=== PATIENT | female | born 1965 | race American Indian/Alaskan Native ===

== ENCOUNTER 2017-10-11 18:21 | Emergency (ER) | payer OTHER ==
[2017-10-11 18:22] VITALS: BMI 31.9
--- NOTE | 2017-10-11 19:02 | ED PDOC ---
Arrival/HPI - General Chief Complaint: Abnormal Skin Integrity Time Seen by Provider: 10/11/17 18:25 Historian: Patient - History of Present Illness Narrative History of Present Illness (Text): 10/11/17 19:04 52yr old female with a hx of sarcoidosis presents today with 2 week history pruritic rash to the left side of the neck. pt states rash started out small and has been gradually increasing. pt denies pain. pt denies fever/chill.s pt denies contacts with dogs. states that she did get a shave of the back of the hair from the hairdresser. no other complaints. Past Medical History - Provider Review Nursing Documentation Reviewed: Yes - Travel History Have you recently traveled outside [place] w/in the past 3 mons?: No - Infectious Disease Hx of Infectious Diseases: None - Tetanus Immunization Tetanus Immunization: Unknown - Cardiac Hx Hypertension: Yes - Pulmonary Other/Comment: sacoidosis - Neurological Hx Neurological Disorder: No - HEENT Hx HEENT Disorder: No - Renal Hx Renal Disorder: No - Endocrine/Metabolic Hx Endocrine Disorders: No - Hematological/Oncological Hx Blood Disorders: No - Integumentary Hx Dermatological Disorder: No - Musculoskeletal/Rheumatological Other/Comment: sarcodosis - Gastrointestinal Hx Gastrointestinal Disorders: No - Genitourinary/Gynecological Hx Genitourinary Disorders: No - Psychiatric Hx Psychophysiologic Disorder: No Hx Substance Use: No - Surgical History Other/Comment: lymph node removal from rt groin/pilonidial cyst/abcess left breast - Anesthesia Hx Anesthesia: Yes Hx Anesthesia Reactions: No Hx Malignant Hyperthermia: No - Suicidal Assessment Feels Threatened In Home Enviroment: No Family/Social History - Physician Review Nursing Documentation Reviewed: Yes Family/Social History: Unknown Family HX Smoking Status: Never Smoked Hx Alcohol Use: Yes Hx Substance Use: No Hx Substance Use Treatment: No Allergies/Home Meds Allergies/Adverse Reactions: Allergies acetaminophen [From Percocet] Allergy (Verified 10/11/17 18:35) RASH oxycodone HCl [From Percocet] Allergy (Verified 10/11/17 18:35) RASH Penicillins Allergy (Verified 10/11/17 18:35) RASH Home Medications: Home Meds Medication Instructions Recorded Confirmed Folic Acid 1 mg PO DAILY 10/03/15 10/11/17 Ergocalciferol (Vitamin D2) 50,000 unit PO QWK 10/28/16 10/11/17 [Vitamin D2] Lisinopril/Hydrochlorothiazide 1 tab PO DAILY 10/28/16 10/11/17 [Lisinopril-Hctz 20-25 mg Tab] Review of Systems - Review of Systems Constitutional: absent: Fatigue, Fevers Respiratory: absent: SOB, Cough Cardiovascular: absent: Chest Pain, Palpitations Gastrointestinal: absent: Abdominal Pain, Nausea, Vomiting Musculoskeletal: absent: Arthralgias Skin: Rash, Pruritis Neurological: absent: Headache Physical Exam Vital Signs Reviewed: Yes Vital Signs Temp Pulse Resp BP Pulse Ox 10/11/17 18:26 98.4 F 85 20 150/90 97 Temperature: Afebrile Blood Pressure: Normal Pulse: Regular Respiratory Rate: Normal Appearance: Positive for: Well-Appearing, Non-Toxic, Comfortable Pain Distress: None Mental Status: Positive for: Alert and Oriented X 3 - Systems Exam Head: Present: Atraumatic Mouth: Present: Moist Mucous Membranes Neck: Present: Normal Range of Motion, Trachea Midline Respiratory/Chest: Present: Clear to Auscultation Cardiovascular: Present: Regular Rate and Rhythm Neurological: Present: GCS=15, Speech Normal Skin: Present: Warm, Dry, Rashes (there is a 3cm round area of raised erythematous plaque with papules. slight fluorescence with Rivera's lamp. ), Normal Color Psychiatric: Present: Alert, Oriented x 3 Medical Decision Making ED Course and Treatment: 10/11/17 19:09 pt is non toxic well appearing; no distress. with 2 week hx of pruritic rash to left side of neck. rash with slight fluorescence with Wood's lamp. will cover with lotrisone. advised f/u with the PMD and sander and polisher. advised return if symptoms worsen, persist or if new symptoms develop. Patient verbalizes understanding of discharge instructions and need for immediate followup. all aspects of this case were discussed the attending of record. Impression: Rash follow up with the Oil Processing Technician within the next 2 days. Lotrisone apply sparingly twice daily to the affected area Follow up with the primary care physician within the next 2 days. return immediately if symptoms worsen,persist or if new symptoms develop. Disposition/Present on Arrival - Present on Arrival Any Indicators Present on Arrival: No History of DVT/PE: No History of Uncontrolled Diabetes: No Urinary Catheter: No History of Decub. Ulcer: No History Surgical Site Infection Following: None - Disposition Have Diagnosis and Disposition been Completed?: Yes Diagnosis: Rash Disposition: HOME/ ROUTINE Disposition Time: 19:01 Patient Plan: Discharge Patient Problems: Current Active Problems Problem Status Onset Rash Acute Condition: GOOD Discharge Instructions (ExitCare): Skin Rash (DC) Additional Instructions: follow up with the Oil Processing Technician within the next 2 days. Lotrisone apply sparingly twice daily to the affected area Follow up with the primary care physician within the next 2 days. return immediately if symptoms worsen,persist or if new symptoms develop. Prescriptions: Clotrimazole/Betamethasone [Lotrisone] 1 appl EXT BID #1 tube Referrals: Yang Brennan MD [Primary Care Provider] - Follow up with primary Ana Merchant MD [Staff Provider] - Follow up with primary
[2017-10-11 19:19] VITALS: BP 150/90; PULSE 85; RESP 20; TEMP 98.4; O2SAT 97
== END 2017-10-11 19:06 | disposition home or self-care (01) ==
LOC: ED 18:21
DX: R21 Rash and other nonspecific skin eruption (principal); I10 Essential (primary) hypertension

== ENCOUNTER 2018-03-28 22:53 | Emergency (ER) | payer OTHER ==
[2018-03-28 23:01] VITALS: BMI 32.1
[2018-03-28 23:14] VITALS: TEMP 98.3
[2018-03-28 23:43] LABS: BASO # 0.01 K/mm3 (0.0-2.0); BASO % 0.2 % (0.0-3.0); EOS # 0.1 (0.0-0.7); EOS % 1.7 % (1.5-5.0); GRAN # 3.21 (1.4-6.5); GRAN % 66.9 % (50.0-68.0); HEMOGLOBIN 12.2 g/dL (12.0-16.0); LYMPH # 1.2 (1.2-3.4); LYMPH % 25.4 % (22.0-35.0); MEAN CELL VOLUME 90.5 fl (80.0-105.0); MEAN CORPUSCULAR HEMOGLOBIN 29.7 pg (25.0-35.0); MEAN CORPUSCULAR HGB CONC 32.8 g/dl (31.0-37.0); MEAN PLATELET VOLUME 11.1 fl (7.0-11.0); MONO # 0.3 (0.1-0.6); MONO % 5.8 % (1.0-6.0); RBC 4.11 10^6/uL (3.5-6.1); RED CELL DISTRIBUTION WIDTH 12.7 % (11.5-14.5); WHITE BLOOD COUNT 4.8 10^3/ul (4.5-11.0)
[2018-03-28 23:53] LABS: CALCIUM 8.9 mg/dL (8.4-10.5); GFR NON-AFRICAN AMERICAN > 60
--- NOTE | 2018-03-29 00:02 | ED PDOC ---
Arrival/HPI - General Chief Complaint: Shortness Of Breath Time Seen by Provider: 03/28/18 23:27 Historian: Patient - History of Present Illness Narrative History of Present Illness (Text): 03/28/18 23:02 52 year old female, whose past medical history includes sarcoidosis and hypertension, presents to the emergency department complaining of having shortness of breath associated with congestion, cough, and sneezing that began 3 days ago. Patient states sometimes her chest feels tight when having trouble breathing. She states she's been taking over the counter medication with no relief. Patient denies any fever, chills, dyspnea on exertion, orthopnea, nausea, vomiting, diarrhea, urinary symptoms, back pain, neck pain, leg pain or swelling, headache, dizziness, or any other complaints. Time/Duration: Other (3 days) Symptom Onset: Gradual Symptom Course: Unchanged Activities at Onset: Light Context: Home Past Medical History - Provider Review Nursing Documentation Reviewed: Yes - Infectious Disease Hx of Infectious Diseases: None - Tetanus Immunization Tetanus Immunization: Unknown - Cardiac Hx Hypertension: Yes - Pulmonary Other/Comment: Sarcoidosis - Neurological Hx Neurological Disorder: No - HEENT Hx HEENT Disorder: No - Renal Hx Renal Disorder: No - Endocrine/Metabolic Hx Endocrine Disorders: No - Hematological/Oncological Hx Blood Disorders: No - Integumentary Hx Dermatological Disorder: No - Musculoskeletal/Rheumatological Other/Comment: sarcodosis - Gastrointestinal Hx Gastrointestinal Disorders: No - Genitourinary/Gynecological Hx Genitourinary Disorders: No - Psychiatric Hx Psychophysiologic Disorder: No Hx Substance Use: No - Surgical History Other/Comment: lymph node removal from rt groin/pilonidial cyst/abcess left breast - Anesthesia Hx Anesthesia: Yes Hx Anesthesia Reactions: No Hx Malignant Hyperthermia: No - Suicidal Assessment Feels Threatened In Home Enviroment: No Family/Social History - Physician Review Nursing Documentation Reviewed: Yes Family/Social History: No Known Family HX Smoking Status: Never Smoked Hx Alcohol Use: Yes Hx Substance Use: No Hx Substance Use Treatment: No Allergies/Home Meds Allergies/Adverse Reactions: Allergies acetaminophen [From Percocet] Allergy (Verified 03/28/18 23:01) RASH oxycodone HCl [From Percocet] Allergy (Verified 03/28/18 23:01) RASH Penicillins Allergy (Verified 03/28/18 23:01) RASH Home Medications: Home Meds Medication Instructions Recorded Confirmed Folic Acid 1 mg PO DAILY 10/03/15 03/28/18 Ergocalciferol (Vitamin D2) 50,000 unit PO QWK 10/28/16 03/28/18 [Vitamin D2] Lisinopril/Hydrochlorothiazide 1 tab PO DAILY 10/28/16 03/28/18 [Lisinopril-Hctz 20-25 mg Tab] Aspirin [Aspirin Chewable] 81 mg PO DAILY 03/28/18 03/28/18 Prednisone [Winifred] 5 mg PO DAILY 03/28/18 03/28/18 Review of Systems - Physician Review All systems were reviewed & negative as marked: Yes - Review of Systems Constitutional: absent: Fevers, Other (Chills) ENT: Sinus Congestion, Other (Sneezing ) Respiratory: SOB, Cough Cardiovascular: Other (Chest tightness). absent: CARDOSO, Orthopnea Gastrointestinal: absent: Diarrhea, Nausea, Vomiting Genitourinary Female: absent: Dysuria, Frequency, Hematuria Musculoskeletal: absent: Back Pain, Neck Pain, Other (leg pain or swelling) Neurological: absent: Headache, Dizziness Physical Exam Vital Signs Reviewed: Yes Vital Signs Temp Pulse Resp BP Pulse Ox 03/29/18 02:35 84 16 145/87 100 03/29/18 01:00 78 16 150/107 H 98 03/28/18 23:15 18 99 03/28/18 23:13 98.3 F 92 H 18 157/110 H 97 Temperature: Afebrile Blood Pressure: Hypertensive Pulse: Regular Respiratory Rate: Normal Appearance: Positive for: Well-Appearing, Non-Toxic, Comfortable Pain Distress: None Mental Status: Positive for: Alert and Oriented X 3 - Systems Exam Head: Present: Atraumatic, Normocephalic Pupils: Present: PERRL Extroacular Muscles: Present: EOMI Conjunctiva: Present: Normal Mouth: Present: Moist Mucous Membranes Neck: Present: Normal Range of Motion Respiratory/Chest: Present: Clear to Auscultation, Good Air Exchange. No: Respiratory Distress, Accessory Muscle Use Cardiovascular: Present: Regular Rate and Rhythm, Normal S1, S2. No: Murmurs Abdomen: No: Tenderness, Distention, Peritoneal Signs Back: Present: Normal Inspection Upper Extremity: Present: Normal Inspection. No: Cyanosis, Edema Lower Extremity: Present: Normal Inspection. No: Edema Neurological: Present: GCS=15, CN II-XII Intact, Speech Normal Skin: Present: Warm, Dry, Normal Color. No: Rashes Psychiatric: Present: Alert, Oriented x 3, Normal Insight, Normal Concentration Medical Decision Making ED Course and Treatment: 03/29/18 23:05 Impression: 52 year old female presents complaining of shortness of breath associated with congestion, cough, and sneezing that began 3 days ago. Patient also report chest tightness when having trouble breathing. Plan: -- Labs -- Chest X-ray -- Decadron Inj -- Reassess and disposition Prior Visits: Notes and results from previous visits were reviewed. Patient was last seen in the emergency department on 10/28/16 presents complaining of nasal congestion and sinus congestion since yesterday. Patient was discharged. Progress Notes: 03/29/18 01:02 EKG shows NSR at 85 BPM. Normal EKG. Interpreted by me. CXR Impression: As read by me, SARAH 03/29/18 02:05 Patient given 10mg decadron IM- states that this helped last time she had similar symptoms. On re-evaluation, patient feels better and is in no acute distress. I have discussed the results and plan with the patient, who expresses understanding. Patient in agreement with plan to be discharged home. Patient is stable for discharge. Patient was instructed to follow up with physician or return if symptoms worsen or new concerning symptoms arise. - Lab Interpretations Lab Results: 03/28/18 23:15 03/28/18 23:15 Lab Results 03/28/18 23:15: Sodium 140, Potassium 4.5, Chloride 108 H, Carbon Dioxide 26, Anion Gap 11, BUN 9, Creatinine 0.6 L, Est GFR ( Amer) > 60, Est GFR (Non -Af Amer) > 60, Random Glucose 109, Calcium 8.9, Troponin I 0.01 03/28/18 23:15: WBC 4.8, RBC 4.11, Hgb 12.2, Hct 37.2, MCV 90.5, MCH 29.7, MCHC 32.8, RDW 12.7, Plt Count 155, MPV 11.1 H, Gran % 66.9, Lymph % (Auto) 25.4, Christian % (Auto) 5.8, Eos % (Auto) 1.7, Baso % (Auto) 0.2, Gran # 3.21, Lymph # ( Auto) 1.2, Christian # (Auto) 0.3, Eos # (Auto) 0.1, Baso # (Auto) 0.01 I have reviewed the lab results: Yes - RAD Interpretation Radiology Orders: 03/29/18 01:40 CHEST TWO VIEWS (PA/LAT) [RAD] Stat - Medication Orders Current Medication Orders: Discontinued Medications Dexamethasone (Decadron Inj) 10 mg IM STAT STA Stop: 03/28/18 23:59 Last Admin: 03/29/18 00:15 Dose: 10 mg IM Administration Charges Document 03/29/18 00:15 JOL (Rec: 03/29/18 00:15 JOL [facility] [id number]) Injection Site MAR Injection Site Left Deltoid Charges for Administration # of IM Administrations 1 - Scribe Statement The provider has reviewed the documentation as recorded by the Scribe Maria Del Carmen Dougherty Provider Scribe Attestation: All medical record entries made by the Scribe were at my direction and personally dictated by me. I have reviewed the chart and agree that the record accurately reflects my personal performance of the history, physical exam, medical decision making, and the department course for this patient. I have also personally directed, reviewed, and agree with the discharge instructions and disposition. Disposition/Present on Arrival - Present on Arrival Any Indicators Present on Arrival: No History of DVT/PE: No History of Uncontrolled Diabetes: No Urinary Catheter: No History of Decub. Ulcer: No History Surgical Site Infection Following: None - Disposition Have Diagnosis and Disposition been Completed?: Yes Diagnosis: URI (upper respiratory infection) Disposition: HOME/ ROUTINE Disposition Time: 02:35 Condition: GOOD Discharge Instructions (ExitCare): Viral Upper Respiratory Infection, Adult (DC ) Additional Instructions: MELVIN NAGEL, thank you for letting us take care of you today. Your provider was Vicky Alfonso MD and you were treated for TROUBLE BREATHING. The emergency medical care you received today was directed at your acute symptoms. If you were prescribed any medication, please fill it and take as directed. It may take several days for your symptoms to resolve. Return to the Emergency Department if your symptoms worsen, do not improve, or if you have any other problems. Please contact your doctor or call one of the physicians/clinics you have been referred to that are listed on the Patient Visit Information form that is included in your discharge packet. Bring any paperwork you were given at discharge with you along with any medications you are taking to your follow up visit. Our treatment cannot replace ongoing medical care by a primary care provider outside of the emergency department. Thank you for allowing the [facility] team to be part of your care today. If you had an X-Ray or CT scan: A Radiologist will review the ED reading if any change in treatment is needed we will contact you. If you had a blood, urine, or wound culture: It will take several days for the results, if any change in treatment is needed we will contact you. If you had an STI test: It will take 48 hours for the results. Please call after 1 week if you have not heard back. Referrals: Yang Brennan MD [Primary Care Provider] - Follow up with primary Forms: [employer] ([place]an)
[2018-03-29 00:25] LABS: BLOOD UREA NITROGEN 9 mg/dL (7-21); TROPONIN I 0.01 ng/mL
[2018-03-29 02:40] VITALS: BP 145/87; PULSE 84; RESP 16; O2SAT 100
--- NOTE | 2018-03-29 09:14 | RAD ---
HISTORY: shortness of breath COMPARISON: None available. TECHNIQUE: Chest PA and lateral FINDINGS: Emanation limited by habitus and hypoinflation. LUNGS: No focal consolidation. Please note that chest x-ray has limited sensitivity for the detection of pulmonary masses. PLEURA: No significant pleural effusion identified. No definite pneumothorax . CARDIOVASCULAR: The cardiomediastinal silhouette appears within normal limits of size. OSSEOUS STRUCTURES: No acute osseous abnormality identified. VISUALIZED UPPER ABDOMEN: Unremarkable. OTHER FINDINGS: None. IMPRESSION: No focal consolidation identified.
--- NOTE | 2018-03-30 05:33 | CARD ---
APPROVED REPORT Date of service: 03/28/2018 EKG Measurement Heart [id number] <Conclusion> Normal sinus rhythm Normal ECG
== END 2018-03-29 02:35 | disposition home or self-care (01) ==
LOC: ED 22:53
DX: J06.9 Acute upper respiratory infection, unspecified (principal); I10 Essential (primary) hypertension
CPT/HCPCS: 71046; 80048; 84484; 85025; 93005; 96372; 99284; J1100

== ENCOUNTER 2018-09-10 20:04 | Emergency (ER) | payer OTHER ==
[2018-09-10 20:05] VITALS: BMI 32.1
[2018-09-10 20:15] VITALS: BP 125/89; PULSE 102; RESP 18; TEMP 98.3; O2SAT 97
--- NOTE | 2018-09-10 20:55 | ED PDOC ---
Arrival/HPI - General Chief Complaint: ENT Problem Time Seen by Provider: 09/10/18 20:05 Historian: Patient - History of Present Illness Narrative History of Present Illness (Text): 09/10/18 20:57 53-year-old female w/ PMH of HTN, presents complaining of 4 day history of runny nose, nasal congestion, facial pain, bilateral ear pain and dry cough. Reports that she has been taking [id number] Sudafed and Flonase with minimal improvement in her symptoms prompting ER visit. Otherwise reports no fever, chills, headache, sore throat, rash, difficulty breathing, chest pain. Past Medical History - Infectious Disease Hx of Infectious Diseases: None - Tetanus Immunization Tetanus Immunization: Unknown - Reproductive Currently : No - Cardiac Hx Hypertension: Yes - Pulmonary Other/Comment: Sarcoidosis - Neurological Hx Neurological Disorder: No - HEENT Hx HEENT Disorder: No - Renal Hx Renal Disorder: No - Endocrine/Metabolic Hx Endocrine Disorders: No - Hematological/Oncological Hx Blood Disorders: No - Integumentary Hx Dermatological Disorder: No - Musculoskeletal/Rheumatological Other/Comment: sarcodosis - Gastrointestinal Hx Gastrointestinal Disorders: No - Genitourinary/Gynecological Hx Genitourinary Disorders: No - Psychiatric Hx Psychophysiologic Disorder: No Hx Substance Use: No - Surgical History Other/Comment: lymph node removal from rt groin/pilonidial cyst/abcess left breast - Anesthesia Hx Anesthesia: Yes Hx Anesthesia Reactions: No Hx Malignant Hyperthermia: No - Suicidal Assessment Feels Threatened In Home Enviroment: No Family/Social History Family/Social History: No Known Family HX Smoking Status: Never Smoked Hx Alcohol Use: Yes Hx Substance Use: No Hx Substance Use Treatment: No Allergies/Home Meds Allergies/Adverse Reactions: Allergies acetaminophen [From Percocet] Allergy (Verified 09/10/18 20:09) RASH oxycodone HCl [From Percocet] Allergy (Verified 09/10/18 20:09) RASH Penicillins Allergy (Verified 09/10/18 20:09) RASH Home Medications: Home Meds Medication Instructions Recorded Confirmed RX: Folic Acid 1 mg PO DAILY 10/03/15 09/10/18 Ergocalciferol (Vitamin D2) 50,000 unit PO QWK 10/28/16 09/10/18 [Vitamin D2] Lisinopril/Hydrochlorothiazide 1 tab PO DAILY 10/28/16 09/10/18 [Lisinopril-Hctz 20-25 mg Tab] Aspirin [Aspirin Chewable] 81 mg PO DAILY 03/28/18 09/10/18 RX: Prednisone [Winifred] 5 mg PO DAILY 03/28/18 09/10/18 Review of Systems - Review of Systems Constitutional: absent: Fatigue, Fevers ENT: Rhinorrhea, Sinus Congestion, Other (+ear pain). absent: Sore Throat, Epistaxis Respiratory: Cough. absent: SOB Cardiovascular: absent: Chest Pain, Palpitations Musculoskeletal: absent: Arthralgias, Back Pain, Neck Pain Skin: absent: Rash, Pruritis, Skin Lesions Physical Exam Vital Signs Temp Pulse Resp BP Pulse Ox 09/10/18 20:14 98.3 F 102 H 18 125/89 97 Temperature: Afebrile Blood Pressure: Normal Pulse: Regular Respiratory Rate: Normal Appearance: Positive for: Well-Appearing, Non-Toxic, Comfortable Pain Distress: None Mental Status: Positive for: Alert and Oriented X 3 - Systems Exam Head: Present: Atraumatic, Normocephalic Pupils: Present: PERRL Extroacular Muscles: Present: EOMI Conjunctiva: Present: Normal Ears: Present: Normal, NORMAL TM. No: Erythema Mouth: Present: Moist Mucous Membranes Pharnyx: Present: Normal. No: ERYTHEMA, EXUDATE Nose (Internal): Present: Edematous, Clear Mucous. No: No Active Bleeding, Epistaxis Neck: Present: Normal Range of Motion Respiratory/Chest: Present: Clear to Auscultation, Good Air Exchange. No: Respiratory Distress, Accessory Muscle Use Cardiovascular: Present: Regular Rate and Rhythm, Normal S1, S2. No: Murmurs Back: Present: Normal Inspection Upper Extremity: Present: Normal Inspection. No: Cyanosis, Edema Lower Extremity: Present: Normal Inspection. No: Edema Neurological: Present: GCS=15, CN II-XII Intact, Speech Normal Skin: Present: Warm, Dry, Normal Color. No: Rashes Psychiatric: Present: Alert, Oriented x 3, Normal Insight, Normal Concentration Medical Decision Making ED Course and Treatment: 09/10/18 20:55 Advised to follow up with primary care physician in 1-2 days without fail. Advised to take medication as prescribed. Return to the emergency room at any time for any new or worsening symptoms. Patient states she fully agrees with and understands discharge instructions. States that she agrees with the plan and disposition. Verbalized and repeated discharge instructions and plan. I have given the patient opportunity to ask any additional questions. - PA / SURVEY SUPERVISOR / Resident Statement MD/DO has reviewed & agrees with the documentation as recorded. Disposition/Present on Arrival - Present on Arrival Any Indicators Present on Arrival: No History of DVT/PE: No History of Uncontrolled Diabetes: No Urinary Catheter: No History of Decub. Ulcer: No History Surgical Site Infection Following: None - Disposition Have Diagnosis and Disposition been Completed?: Yes Diagnosis: Sinusitis Disposition: HOME/ ROUTINE Disposition Time: 20:50 Patient Plan: Discharge Condition: STABLE Discharge Instructions (ExitCare): Sinusitis, Adult (DC) Additional Instructions: Thank you for letting us take care of you today. You were treated for sinusitis. The emergency medical care you received today was directed at your acute symptoms. If you were prescribed any medication, please fill it and take as directed. It may take several days for your symptoms to resolve. Return to the Emergency Department if your symptoms worsen, do not improve, or if you have any other problems. Please contact your doctor in 2 days for re-evaluation and follow up. Bring any paperwork you were given at discharge with you along with any medications you are taking to your follow up visit. Our treatment cannot replace ongoing medical care by a primary care provider (PCP) outside of the emergency department. Thank you for allowing the [facility] team to be part of your care today. Prescriptions: RX: Doxycycline Hyclate 100 mg PO BID #14 capsule Mometasone Furoate [Nasonex] 2 spray NS BID #1 spray.pump Forms: [employer] (Russian), WORK NOTE
== END 2018-09-10 21:20 | disposition home or self-care (01) ==
LOC: ED 20:04
DX: J32.9 Chronic sinusitis, unspecified (principal); I10 Essential (primary) hypertension

== ENCOUNTER 2018-09-13 01:12 | Emergency (ER) | payer OTHER ==
[2018-09-13 01:27] VITALS: BMI 33.0
[2018-09-13 01:37] VITALS: RESP 18; TEMP 98.7; O2SAT 100
--- NOTE | 2018-09-13 02:02 | ED PDOC ---
Arrival/HPI - General Chief Complaint: ENT Problem Time Seen by Provider: 09/13/18 01:13 Historian: Patient - History of Present Illness Narrative History of Present Illness (Text): 09/13/18 01:58 53 year old female, with past medical history of hypertension and sarcoidosis, presents to emergency department complaining of nasal congestion, cough, and sneezing since Friday. Patient reports she was recently here a few days ago and given doxycycline for sinusitis. She states that she experienced vomiting side effects yesterday due to the medication. She notes that her congestion has not resolved and that she came back for further evaluation. Patient denies any shortness of breath, wheezing, abdominal pain, chest pain, fevers, chills, night sweats, epistaxis, headaches, ear discharge, or problems swallowing. Time/Duration: Other (past Friday ) Symptom Onset: Gradual Symptom Course: Unchanged Activities at Onset: Light Context: Home Past Medical History - Provider Review Nursing Documentation Reviewed: Yes - Infectious Disease Hx of Infectious Diseases: None - Tetanus Immunization Tetanus Immunization: Unknown - Reproductive Currently : Unknown - Cardiac Hx Hypertension: Yes - Pulmonary Other/Comment: Sarcoidosis - Neurological Hx Neurological Disorder: No - HEENT Hx HEENT Disorder: No - Renal Hx Renal Disorder: No - Endocrine/Metabolic Hx Endocrine Disorders: No - Hematological/Oncological Hx Blood Disorders: No - Integumentary Hx Dermatological Disorder: No - Musculoskeletal/Rheumatological Other/Comment: sarcodosis - Gastrointestinal Hx Gastrointestinal Disorders: No - Genitourinary/Gynecological Hx Genitourinary Disorders: No - Psychiatric Hx Psychophysiologic Disorder: No Hx Substance Use: No - Surgical History Other/Comment: lymph node removal from rt groin/pilonidial cyst/abcess left breast - Anesthesia Hx Anesthesia: Yes Hx Anesthesia Reactions: No Hx Malignant Hyperthermia: No - Suicidal Assessment Feels Threatened In Home Enviroment: No Family/Social History - Physician Review Nursing Documentation Reviewed: Yes Family/Social History: Unknown Family HX Smoking Status: Never Smoked Hx Alcohol Use: Yes Hx Substance Use: No Hx Substance Use Treatment: No Allergies/Home Meds Allergies/Adverse Reactions: Allergies acetaminophen [From Percocet] Allergy (Verified 09/10/18 20:09) RASH oxycodone HCl [From Percocet] Allergy (Verified 09/10/18 20:09) RASH Penicillins Allergy (Verified 09/10/18 20:09) RASH doxycycline Adverse Reaction (Verified 09/13/18 01:31) VOMITING Home Medications: Home Meds Medication Instructions Recorded Confirmed Folic Acid 1 mg PO DAILY 10/03/15 09/10/18 Ergocalciferol (Vitamin D2) 50,000 unit PO QWK 10/28/16 09/10/18 [Vitamin D2] Lisinopril/Hydrochlorothiazide 1 tab PO DAILY 10/28/16 09/10/18 [Lisinopril-Hctz 20-25 mg Tab] Aspirin [Aspirin Chewable] 81 mg PO DAILY 03/28/18 09/10/18 Prednisone [Winifred] 5 mg PO DAILY 03/28/18 09/10/18 Review of Systems - Physician Review All systems were reviewed & negative as marked: Yes - Review of Systems Constitutional: absent: Fatigue, Weight Change, Fevers, Night Sweats Eyes: absent: Vision Changes, Photophobia, Eye Pain ENT: Other (nasal congestion). absent: Hearing Changes, Tinnitus, TMJ Pain, Epistaxis Respiratory: absent: SOB, Wheezing Cardiovascular: absent: Chest Pain, Palpitations Gastrointestinal: absent: Abdominal Pain, Stool Changes Genitourinary Female: absent: Dysuria, Frequency, Urine Output Changes Musculoskeletal: absent: Arthralgias, Back Pain, Neck Pain Skin: absent: Rash Neurological: absent: Headache, Dizziness Endocrine: absent: Diaphoresis Hemo/Lymphatic: absent: Adenopathy Psychiatric: absent: Anxiety, Depression Physical Exam Vital Signs Reviewed: Yes Vital Signs Temp Pulse Resp BP Pulse Ox 09/13/18 01:36 98.7 F 98 H 18 153/105 H 100 Temperature: Afebrile Blood Pressure: Normal Pulse: Regular Respiratory Rate: Normal Appearance: Positive for: Well-Appearing, Non-Toxic, Comfortable Pain Distress: None Mental Status: Positive for: Alert and Oriented X 3 - Systems Exam Head: Present: Atraumatic, Normocephalic Pupils: Present: PERRL Extroacular Muscles: Present: EOMI Conjunctiva: Present: Normal Ears: Present: Normal, NORMAL TM Mouth: Present: Moist Mucous Membranes Pharnyx: Present: Normal. No: ERYTHEMA, EXUDATE, TONSILS ENLARGED, Peritonsilar Swelling, Uvular Deviation, Muffled/Hoarse Voice Nose (External): Present: Atraumatic Nose (Internal): Present: No Active Bleeding, Other (nasal congestion). No: Moist, Engorged, Edematous, Purulent Mucous, Septal Deviation, Septal Hematoma, Epistaxis Neck: Present: Normal Range of Motion, Trachea Midline. No: Meningeal Signs, MIDLINE TENDERNESS, Paraspinal Tenderness, JVD, Lymphadenopathy Respiratory/Chest: Present: Clear to Auscultation, Good Air Exchange. No: Respiratory Distress, Accessory Muscle Use Cardiovascular: Present: Regular Rate and Rhythm, Normal S1, S2. No: Murmurs Abdomen: No: Tenderness, Distention, Peritoneal Signs Back: Present: Normal Inspection. No: CVA Tenderness Upper Extremity: Present: Normal Inspection. No: Cyanosis, Edema Lower Extremity: Present: Normal Inspection. No: Edema Neurological: Present: GCS=15, CN II-XII Intact, Speech Normal Skin: Present: Warm, Dry, Normal Color. No: Rashes Psychiatric: Present: Alert, Oriented x 3, Normal Insight, Normal Concentration Medical Decision Making ED Course and Treatment: 09/13/18 02:03 Impression: 53 year old female presents to emergency department complaining of nasal congestion, cough, and sneezing since Friday. Likely recurrent sinusitis, may require change in abx. No signs of further invasion of sinusitis into frontal bone or tissue. No fever, pus like nasal discharge. No abnl noted on visualization besides nasal congestion. Differential Diagnosis included but are not limited to: Plan: -- Decadron -- Reassess and disposition Prior Visits: Notes and results from previous visits were reviewed. Progress Notes: 09/13/18 02:03 Patient is requesting decadron shot. notes it helped her last time with sinusitis symptoms. 09/13/18 02:34 pt notes improvement after decadron shot lungs remain clear No meningeal signs, Uvula midline. No peritonsillar abscess noted. No change in phonation or dysphagia. TM clear. No abnl drainage from nose Will change up abx Clear for d/c home with f/u and return indications, pt is agreeable to plan. - Medication Orders Current Medication Orders: Dexamethasone (Decadron Inj) 10 mg IM STAT STA Stop: 09/13/18 01:55 - Scribe Statement The provider has reviewed the documentation as recorded by the Scribe Jamal Dunham All medical record entries made by the Scribe were at my direction and personally dictated by me. I have reviewed the chart and agree that the record accurately reflects my personal performance of the history, physical exam, medical decision making, and the department course for this patient. I have also personally directed, reviewed, and agree with the discharge instructions and disposition. Disposition/Present on Arrival - Present on Arrival Any Indicators Present on Arrival: No History of DVT/PE: No History of Uncontrolled Diabetes: No Urinary Catheter: No History of Decub. Ulcer: No History Surgical Site Infection Following: None - Disposition Have Diagnosis and Disposition been Completed?: Yes Diagnosis: Sinusitis Disposition: HOME/ ROUTINE Disposition Time: 02:35 Condition: GOOD Discharge Instructions (ExitCare): Sinusitis, Adult (DC) Additional Instructions: STOP TAKING THE DOXYCYCLINE. TAKE THE NEW ANTIBIOTIC AND SEE YOUR PRIMARY CARE DOCTOR AND THE EAR NOSE AND THROAT DOCTOR WE HAVE RECCOMENDED. RETURN IF ANY NEW OR WORSENING SYMPTOMS MELVIN NAGEL, thank you for letting us take care of you today. Your provider was Parth No and you were treated for CONGESTED, UNABLE TO SLEEP. The emergency medical care you received today was directed at your acute symptoms. If you were prescribed any medication, please fill it and take as directed. It may take several days for your symptoms to resolve. Return to the Emergency Department if your symptoms worsen, do not improve, or if you have any other problems. Please contact your doctor or call one of the physicians/clinics you have been referred to that are listed on the Patient Visit Information form that is included in your discharge packet. Bring any paperwork you were given at discharge with you along with any medications you are taking to your follow up visit. Our treatment cannot replace ongoing medical care by a primary care provider outside of the emergency department. Thank you for allowing the [facility] team to be part of your care today. If you had an X-Ray or CT scan: A Radiologist will review the ED reading if any change in treatment is needed we will contact you. If you had a blood, urine, or wound culture: It will take several days for the results, if any change in treatment is needed we will contact you. If you had an STI test: It will take 48 hours for the results. Please call after 1 week if you have not heard back. Prescriptions: Levofloxacin [Levaquin] 500 mg PO Q24H 5 Days #5 tablet Referrals: Yang Brennan MD [Primary Care Provider] - Follow up with primary Soham Ceballos DO [[facility]] - Follow up with primary [facility] [Outside] - Follow up with primary [facility] [Outside] - Follow up with primary [facility] - Follow up with primary Forms: [facility] (Hungarian)
[2018-09-13 02:49] VITALS: BP 145/87; PULSE 90
== END 2018-09-13 02:48 | disposition home or self-care (01) ==
LOC: ED 01:12
DX: J32.9 Chronic sinusitis, unspecified (principal)
CPT/HCPCS: 96372; 99283; J1100

== ENCOUNTER 2018-09-26 01:51 | Emergency (ER) | payer OTHER ==
[2018-09-26 02:12] VITALS: BMI 31.6
[2018-09-26 02:15] VITALS: TEMP 98
--- NOTE | 2018-09-26 02:22 | ED PDOC ---
Arrival/HPI - General Chief Complaint: ENT Problem Time Seen by Provider: 09/26/18 02:15 Historian: Patient - History of Present Illness Narrative History of Present Illness (Text): 09/26/18 02:21 Sarah Gradner is a 53 year old female, whose past medical history includes hypertension and sarcoidosis, who presents to the Emergency department complaining of cold-like symptoms. Patient states she has been experiencing nasal congestion, runny nose, and frontal headache discomfort. Patient states she has a history of recurrent sinusitis, for which was seen by ENT last week and place on steroids. Patient states she was recently seen in the Emergency department for similar complaints and placed on Levofloxacin, which she completed. Patient denies any fever, chills, chest pain, shortness of breath, nausea, vomiting, diarrhea, urinary symptoms, back pain, neck pain, dizziness, or any other complaints. Symptom Onset: Gradual Symptom Course: Unchanged Activities at Onset: Light Context: Home Past Medical History - Provider Review Nursing Documentation Reviewed: Yes - Infectious Disease Hx of Infectious Diseases: None - Tetanus Immunization Tetanus Immunization: Unknown - Cardiac Hx Hypertension: Yes - Pulmonary Other/Comment: Sarcoidosis - Neurological Hx Neurological Disorder: No - HEENT Hx HEENT Disorder: No - Renal Hx Renal Disorder: No - Endocrine/Metabolic Hx Endocrine Disorders: No - Hematological/Oncological Hx Blood Disorders: No - Integumentary Hx Dermatological Disorder: No - Musculoskeletal/Rheumatological Other/Comment: sarcodosis - Gastrointestinal Hx Gastrointestinal Disorders: No - Genitourinary/Gynecological Hx Genitourinary Disorders: No - Psychiatric Hx Psychophysiologic Disorder: No Hx Substance Use: No - Surgical History Other/Comment: lymph node removal from rt groin/pilonidial cyst/abcess left breast - Anesthesia Hx Anesthesia: Yes Hx Anesthesia Reactions: No Hx Malignant Hyperthermia: No - Suicidal Assessment Feels Threatened In Home Enviroment: No Family/Social History - Physician Review Nursing Documentation Reviewed: Yes Family/Social History: Unknown Family HX Smoking Status: Never Smoked Hx Alcohol Use: Yes Hx Substance Use: No Hx Substance Use Treatment: No Allergies/Home Meds Allergies/Adverse Reactions: Allergies acetaminophen [From Percocet] Allergy (Verified 09/26/18 02:12) RASH oxycodone HCl [From Percocet] Allergy (Verified 09/26/18 02:12) RASH Penicillins Allergy (Verified 09/26/18 02:12) RASH doxycycline Adverse Reaction (Verified 09/26/18 02:12) VOMITING Home Medications: Home Meds Medication Instructions Recorded Confirmed Folic Acid 1 mg PO DAILY 10/03/15 09/26/18 Ergocalciferol (Vitamin D2) 50,000 unit PO QWK 10/28/16 09/26/18 [Vitamin D2] Lisinopril/Hydrochlorothiazide 1 tab PO DAILY 10/28/16 09/26/18 [Lisinopril-Hctz 20-25 mg Tab] Aspirin [Aspirin Chewable] 81 mg PO DAILY 03/28/18 09/26/18 Prednisone [Winifred] 5 mg PO DAILY 03/28/18 09/26/18 Review of Systems - Physician Review All systems were reviewed & negative as marked: Yes - Review of Systems Constitutional: Normal. absent: Fevers Eyes: Normal ENT: Rhinorrhea Respiratory: Normal. absent: SOB Cardiovascular: Normal. absent: Chest Pain Gastrointestinal: Normal. absent: Abdominal Pain, Diarrhea, Nausea, Food Intolerance Genitourinary Female: Normal. absent: Dysuria, Frequency, Hematuria, Urine Output Changes Musculoskeletal: Normal. absent: Back Pain, Neck Pain Skin: Normal. absent: Rash Neurological: Headache. absent: Dizziness Endocrine: Normal Hemo/Lymphatic: Normal Psychiatric: Normal Physical Exam Vital Signs Reviewed: Yes Vital Signs Temp Pulse Resp BP Pulse Ox 09/26/18 02:13 98 F 81 18 177/130 H 98 Temperature: Afebrile Blood Pressure: Hypertensive Pulse: Regular Respiratory Rate: Normal Appearance: Positive for: Well-Appearing, Non-Toxic, Comfortable Pain Distress: None Mental Status: Positive for: Alert and Oriented X 3 - Systems Exam Head: Present: Normocephalic, Tenderness (Tenderness over frontal sinuses) Pupils: Present: PERRL Extroacular Muscles: Present: EOMI Conjunctiva: Present: Normal Ears: Present: Normal, NORMAL TM, Normal Canal. No: Erythema, TM Bulging, Fluid, TM Perf Mouth: Present: Moist Mucous Membranes Pharnyx: Present: Normal. No: ERYTHEMA, EXUDATE, TONSILS ENLARGED, Peritonsilar Swelling, Uvular Deviation, Muffled/Hoarse Voice, Strider, Soft Palate/Uvular Edema Nose (External): Present: Atraumatic Nose (Internal): Present: Other (nasal congestion) Neck: Present: Normal Range of Motion Respiratory/Chest: Present: Clear to Auscultation, Good Air Exchange. No: Respiratory Distress, Accessory Muscle Use Cardiovascular: Present: Regular Rate and Rhythm, Normal S1, S2. No: Murmurs Abdomen: No: Tenderness, Distention, Peritoneal Signs Back: Present: Normal Inspection Upper Extremity: Present: Normal Inspection. No: Cyanosis, Edema Lower Extremity: Present: Normal Inspection. No: Edema Neurological: Present: GCS=15, CN II-XII Intact, Speech Normal Skin: Present: Warm, Dry, Normal Color. No: Rashes Psychiatric: Present: Alert, Oriented x 3, Normal Insight, Normal Concentration Medical Decision Making ED Course and Treatment: 09/26/18 02:21 Impression: 53 year old female complaining of nasal congestion, rhinorrhea, and frontal head discomfort. Plan: -- Decadron -- Solu-medrol -- Reassess and disposition Prior Visits: Notes and results from previous visits were reviewed. Progress Notes: - Scribe Statement The provider has reviewed the documentation as recorded by the Nilay Garcia Provider Scribe Attestation: All medical record entries made by the Scribe were at my direction and personally dictated by me. I have reviewed the chart and agree that the record accurately reflects my personal performance of the history, physical exam, medical decision making, and the department course for this patient. I have also personally directed, reviewed, and agree with the discharge instructions and disposition. Disposition/Present on Arrival - Present on Arrival Any Indicators Present on Arrival: No History of DVT/PE: No History of Uncontrolled Diabetes: No Urinary Catheter: No History of Decub. Ulcer: No History Surgical Site Infection Following: None - Disposition Have Diagnosis and Disposition been Completed?: Yes Diagnosis: Sinusitis Disposition: HOME/ ROUTINE Disposition Time: 02:32 Patient Plan: Discharge Patient Problems: Current Active Problems Problem Status Onset Sinusitis Acute Condition: GOOD Discharge Instructions (ExitCare): Sinusitis, Adult (DC) Additional Instructions: Take meds as prescribed/follow up with your doctor tommorow as scheduled Prescriptions: Levofloxacin [Levaquin] 500 mg PO DAILY #5 tablet Forms: [employer] ([place])
[2018-09-26] MEDS ORDERED: Dexamethasone 4 mg/1 ml IM ONE (02:28)
[2018-09-26] MEDS ORDERED: levoFLOXacin 500 MG TAB PO STA (02:30)
[2018-09-26 03:27] VITALS: BP 150/85; PULSE 82; RESP 16; O2SAT 100
== END 2018-09-26 03:00 | disposition home or self-care (01) ==
LOC: ED 01:51
DX: J32.9 Chronic sinusitis, unspecified (principal)
CPT/HCPCS: 81025; 96372; 99283; J1100